=== PATIENT | male | born 1970 | race Hispanic/Latino ===

== ENCOUNTER 2022-07-12 12:55 | Observation (INO) | payer BC ==
--- OUTSIDE RECORDS SUMMARY | 2022-07-12 12:58 | XMS REPORT | Continuity of Care Document ---
:1970 Author Organization [facility] t Address [address] [place] [address] Care Team Providers Name Role Phone Sofia Stubbs MD Primary Care Physician [phone] Jem CM, Mitzi Nuñez Attending Clinician [phone] Nabil CM, Victorino Hayward Attending Clinician Charissa Jauregui MA Attending Clinician Unavailable Kiya CM, Willard Paz Attending Clinician Al CM, Carlitos Urias Attending Clinician Juana CM, Solitario Attending Clinician Juan CM, Gustavo Mix Attending Clinician Emery CM, Ankur Mariano Attending Clinician Sofia Stubbs MD Attending Clinician DEMETRA ROJAS Attending Clinician Unavailable MARIELA CHRISTIANSON Attending Clinician Unavailable BRICE RUVALCABA Attending Clinician Unavailable MD BRICE RUVALCABA Attending Clinician Unavailable LESVIA ONEILL Attending Clinician Unavailable WILLARD HUERTAS Admitting Clinician Unavailable JAME CLARK Admitting Clinician Unavailable BRICE RUVALCABA Admitting Clinician Unavailable MD BRICE RUVALCABA Admitting Clinician Unavailable Payers Payer Name Policy Type Policy Number Effective Date Expiration Date S ource Problems Condition Condition Condition Status Onset Resolution Last Treating Co mments Source Name Details Category Date Date Treatment Clinician Date Trigger Trigger Disease Active Overview: Meth alessandra finger, finger, 05-[address] left ring left ring 00:00: g of this H ospita finger finger 00 note l might be different from the original. Added automatic ally from request for surgery [id number] Atrial Atrial Disease Active Methodi fibrillati fibrillati 6-25 st on with on with 00:00: Hospita rapid rapid 00 l ventricula ventricula r response r response Shortness Shortness Disease Active Met hodi of breath of breath 1-08 st 00:00: Hospita 00 l Chest pain Chest pain Disease Active 2016-08 M ethodi 2-03 st 00:00: Hospita 00 l Acute back Acute back Disease Active 2015-08 M ethodi pain pain 0-03 st 00:00: Hospita 00 l Spondyloli Spondyloli Disease Active 2015-08 M ethodi sthesis at sthesis at 0-03 st L4-L5 L4-L5 00:00: Hospita level level 00 l Disc Disc Disease Active 2015-08 Methodi degenerati degenerati 0-03 st on, lumbar on, lumbar 00:00: Ho spita 00 l Allergies, Adverse Reactions, Alerts Allergy Allergy Status Severity Reaction(s) Onset Inactive Treating Comm ents Source Name Type Date Date Clinician Morphine Propensi Active Shortness Of 2015-08 Chest Methodi ty to Breath 0-[address] adverse 00:00: , SOB Hospita reaction 00 l s to drug Tigecycl Propensi Active 2015-08 Muscle Method i ine ty to 0-03 spasms, st adverse 00:00: tremors Hospita reaction 00 and l s to vomiting drug Family History Family Member Diagnosis Comments Start Date Stop Date Source Natural father Cancer [facility] Diabetes [facility] Natural father Kidney disease Method ist [facility] Stroke [facility] Hy[facility] Social History Social Habit Start Date Stop Date Quantity Comments Source Alcohol intake 2022-06-10 2022-06-10 Current [facility] 00:[facility]:00 00:00:00 non-drinker of Hospital alcohol (finding) Tobacco use and 2022-05-04 2022-05-04 Smokeless tobacco [facility] exposure 00:00:00 00:00:00 non-user Hospital Sex Assigned At [birth year] [facility] 00[facility]00 [facility] Smoking Status Start Date Stop Date Source Never smoked tobacco [facility] Medications Ordered Filled Start Stop Current Ordering Indication Dosage Frequency Signature Comments Components Source Medication Medication Date Date Medication? Clinician (SIG) Name Name lidocaine 2021-08 Yes Q.5D Apply Methodi (XYLOCAINE) 0-[address] 2 % jelly 00:00: 2 (two) Hospi ta 00 times a l day as needed for mild pain. amoxicillin 2021-08- No 1{tbl} Q12H Take 1 M ethodi -pot 0-16 10-[address] clavulanate 00:00: 04:59 mouth Hosp jorge (AUGMENTIN) 00 :00 every 12 l 875-125 mg (twelve) per tablet hours for 7 days. keTOROlac 2021-08- No 10mg Q6H Take 1 Metho di (TORadol) 0-16 10-22 tablet (10 st 10 mg 00:00: 04:59 mg total) Hospit a tablet 00 :00 by mouth l every 6 (six) hours as needed for moderate pain for up to 5 days. polyethylen 2021-08- No 17g QD Take 17 g Methodi e glycol 0-14 11-[address] (MIRALAX) 00:00: 05:59 daily for Ho spita 17 gram 00 :00 30 days. l packet lidocaine 2021-08- No 1{each} Q12H Apply 1 M ethodi HCl-hydroco 0-14 11-[address] rtison ac 00:00: 05:59 topically Ho spita 3-0.5 % 00 :00 every 12 l cream (twelve) hours as needed (rectal pain) for up to 30 days. hydrocortis 2021-08- No 1{appli Q.5D Insert 1 Methodi one-pramoxi 0-14 11-14 cator} applicator st ne 00:00: 05:59 into the Hospita (Proctofoam 00 :00 rectum 2 l HC) 1-1 % (two) rectal foam times a day for 30 days. polyethylen 2021-08- No 17g QD Take 17 g Methodi e glycol 0-14 10-[address] (MIRALAX) 00:00: 00:00 daily for Ho spita 17 gram 00 :00 30 days. l packet hydrocortis 2021-08- No 1{appli Q.5D Insert 1 Methodi one-pramoxi 0-14 10-14 cator} applicator st ne 00:00: 00:00 into the Hospita (Proctofoam 00 :00 rectum 2 l HC) 1-1 % (two) rectal foam times a day for 30 days. lidocaine 2021-08- No 1{each} Q12H Apply 1 M ethodi HCl-hydroco 0-14 10-[address] rtison ac 00:00: 00:00 topically Ho spita 3-0.5 % 00 :00 every 12 l cream (twelve) hours as needed (rectal pain). potassium Yes 10meq Q.5D Take 10 Meth alessandra citrate 9-[address] (UROCIT-K) 09:32: mouth 2 Hosp jorge 10 mEq 45 (two) l (1,080 mg) times a CR tablet day. semaglutide Yes 1mg Q1W Inject 1 Me thodi (OZEMPIC) 9-[address] 0.25 09:32: the skin Hospita mg/dose (2 45 every 7 l mg/1.5 mL) days. subcutaneou Every s pen Saturday pioglitazon Yes 15mg QD Take 15 mg Methodi e (ACTOS) 9-[address] 15 MG 09:32: daily. Hospita tablet 45 l aspirin 0 Yes 81mg QD Take 81 mg Meth alessandra (ECOTRIN) 9-[address] 81 MG 09:32: daily. Hospita enteric 45 l coated tablet famotidine Yes 20mg Q.5D Take 20 mg M ethodi (PEPCID) 20 05-[address] MG tablet 09:32: (two) Hospita 45 times a l day. rosuvastati Yes 5mg QD Take 1 Meth alessandra n (CRESTOR) 05-08 tablet (5 st 5 mg tablet 09:32: mg total) H ospita 45 by mouth l daily. cyanocobala Yes 1000ug QD Take 1 Me thodi min 05-[address] (VITAMIN 09:32: (1,000 mcg Hos gustavo B-12) 1000 45 total) by l MCG tablet mouth daily. cholecalcif Yes Take by Met hodi chema, 05-[address] vitamin D3, 09:32: Hospit a (VITAMIN D3 45 l ORAL) flecainide Yes 100mg Q.5D Take 1 Meth alessandra (TAMBOCOR) 05-[address] 100 MG 09:32: (100 mg Hospita tablet 45 total) by l mouth 2 (two) times a day. methocarbam 2021- No 500mg Q.5D Take 500 Methodi oL 05-[address] (ROBAXIN) 16:46: 00:00 mouth 2 Hosp jorge 500 MG 52 :00 (two) l tablet times a day. pregabalin 2021- No pregabalin Methodi (LYRICA) 50 05-[address] MG capsule 16:19: 00:00 capsule Hos gustavo 10 :00 l HYDROcodone 2021- No 1{tbl} Q6H Take 1 M ethodi -acetaminop 05-[address] hen (NORCO) 16:19: 00:00 mouth Hosp jorge 7.5-325 mg 00 :00 every 6 l per tablet (six) hours as needed for moderate pain. traMADoL 2021- No 29934 50mg Q6H Take 1 Metho di (ULTRAM) 50 05-04 tablet (50 s t mg tablet 00:00: 04:59 mg total) Ho spita 00 :00 by mouth l every 6 (six) hours as needed for moderate pain for up to 5 days .acute pain. ondansetron 2021- No 4mg Q8H Take 1 Met hodi ODT 01-20 tablet (4 st (ZOFRAN-ODT 00:00: 00:00 mg total) Hospita ) 4 MG 00 :00 by mouth l disintegrat every 8 ing tablet (eight) hours as needed for nausea or vomiting for up to 12 doses. tamsulosin 2021- No .4mg QD Take 1 Meth alessandra (FLOMAX) 01-[address] 0.4 mg 00:00: 04:59 (0.4 mg Hospita capsule 00 :00 total) by l mouth daily for 30 days. keTOROlac 2021- No 10mg Q6H Take 1 Metho di (TORadol) 01-20 tablet (10 st 10 mg 00:00: 04:59 mg total) Hospit a tablet 00 :00 by mouth l every 6 (six) hours as needed for moderate pain for up to 5 days. SUMAtriptan No 50mg Take 1 Met hodi (Imitrex) 09-08 tablet (50 st 50 MG 00:00: 00:00 mg total) Hospit a tablet 00 :00 by mouth l once as needed for migraine for up to 8 doses. May repeat in 2 hours if unresolved . Do not exceed 200 mg in 24 hours. allopurinol Yes 300mg QD Take 300 M ethodi (ZYLOPRIM) 4-[address] 300 MG 00:00: mouth Hospita tablet 00 daily. l metFORMIN 2015-08 Yes 500mg Q.5D Take 500 Met hodi (GLUCOPHAGE 0-[address] ) 500 MG 00:00: mouth 2 Hospit a tablet 00 (two) l times a day. Immunizations Ordered Immunization Filled Immunization Date Status Commen ts Source Name Name Scale Computing READY TO USE 2022-03-06 Completed Metho dist COVID-19 MRNA 00:00:00 Hospital VACCINATION PFIZER COVID-19 MRNA 2021-07-14 Completed Meth odist VACCINATION 00:00:00 [facility] PFIZER COVID-19 MRNA 2020-09-21 Completed Meth odist VACCINATION 00:00:00 Hospital PFIZER COVID-19 MRNA 2020-08-31 Completed Meth odist VACCINATION 00:00:00 Hospital Influenza, 2017-04-30 Completed [facility] 00:[facility] Hospital Vital Signs Vital Name Observation Time Observation Value Comments Source Systolic blood 2022-06-10 18:36:17 120 mm[Hg] [facility] pressure Diastolic blood 2022-06-10 18:36:17 58 mm[Hg] [facility] pressure Heart rate 2022-06-10 18:36:17 57 /min [facility] Respiratory rate 2022-06-10 18:36:17 26 /min [facility] Oxygen saturation in 2022-06-10 18:36:17 100 /min [facility] Arterial blood by Pulse oximetry Body temperature 2022-06-10 16:08:13 37 Aby [facility] Body height 2022-06-08 20:06:00 180.3 cm [facility] Body weight 2022-06-08 20:06:00 191.418 kg [facility] BMI 2022-06-08 20:06:00 58.86 kg/m2 [facility] Procedures Procedure Date / Time Performing Clinician Source Performed ECG 12-LEAD 2022-06-10 17:38:38 Mitzi Gunn [facility]spital [place] ECG ED PRELIMINARY 2022-06-10 17:09:04 [facility] [place] ED REFERRAL TO FLUVANNA 2022-06-08 22:50:03 Krissy Montero [facility] PHYSICIAN Virant ORGANIZATION (PCP) CT ABDOMEN PELVIS W 2022-06-08 22:29:22 Krissy Montero [facility] CONTRAST Virant HC COMPLETE BLD COUNT 2022-06-08 21:02:00 Krissy Montero [facility] W/AUTO DIFF [facility] COMPREHENSIVE METABOLIC 2022-06-08 21:02:00 Krissy Montero [facility] PANEL Virant LACTIC ACID LEVEL, SEPSIS 2022-06-08 21:02:00 Krissy Montero se [facility] - NOW AND REPEAT 2X EVERY Virant 3 HOURS ESTIMATED GFR 2022-06-08 21:02:00 Krissy Montero [facility] Virant POC GLUCOSE 2022-05-08 13:23:00 Willard Huertas [facility] MO AN ELECTIVE 2022-05-08 12:40:00 Deandre Goldman [facility] ospital SUPRAGLOTTIC AIRWAY RELEASE, TRIGGER FINGER 2022-05-08 12:28:00 [facility] POC GLUCOSE 2022-05-08 11:39:00 [facility] ECG PRE/POST OP 2022-05-04 21:29:04 [facility] ospital HC COMPLETE BLD COUNT 2022-05-04 21:06:00 [facility] W/AUTO DIFF BASIC METABOLIC PANEL 2022-05-04 21:06:00 [facility] HEMOGLOBIN A1C 2022-05-04 21:06:00 [facility] ospital ESTIMATED GFR 2022-05-04 21:06:00 [facility] ospital MO INJECT TENDON 2022-01-31 14:58:36 [facility] SHEATH/LIGAMENT CT RENAL STONE PROTOCOL 2022-01-20 11:10:10 Krishna Bell [facility] URINE CULTURE 2022-01-20 10:44:00 BellKrishna de la fuente [facility] URINALYSIS SCREEN AND 2022-01-20 10:44:00 [facility] MICROSCOPY, WITH REFLEX TO CULTURE CT HEAD WO CONTRAST 2021-09-08 14:28:35 Ankur Land [facility] COMPREHENSIVE METABOLIC 2021-09-08 14:08:00 Ankur esquivel [facility] PANEL LIPASE LEVEL 2021-09-08 14:08:00 alvin Ankur [facility] PHOSPHORUS LEVEL 2021-09-08 14:08:00 alvin [facility] 2021-09-08 14:08:00 [facility] COMPLETE BLD COUNT 2021-09-08 14:08:00 [facility] Ankur García [facility] W/AUTO DIFF ESTIMATED GFR 2021-09-08 14:08:00 [facility] Plan of Care Planned Activity Planned Date Details Comments Source Future Scheduled 2022-07-11 HEPATITIS B VACCINES [facility] Test 15:27:41 (1 of 3 - 3-dose series) [code = HEPATITIS B VACCINES (1 of 3 - 3-dose series)] Future Scheduled 2022-07-11 Hepatitis C screening [facility] Test 15:27:41 (procedure) [code = 387392304] Future Scheduled 2022-07-11 COLONOSCOPY SCREENING [facility] Test 15:27:41 [code = COLONOSCOPY SCREENING] Future Scheduled 2022-07-11 COVID-19 VACCINE (5 - [facility] Test 15:27:41 Booster for Pfizer series) [code = COVID-19 VACCINE (5 - Booster for Pfizer series)] Encounters Start End Encounter Admission Attending Care Care Encounter Source Date/Time Date/Time Type Type Clinicians Facility Department ID 2022-06-10 2022-06-10 Emergency Gunn, 1.2.840.1 [id number] Methodi 11:58:00 14:17:[address] Joaquin 3.430.2.7 Hospit a .3.697348 l .8 2022-06-10 2022-06-10 Travel 1.2.840.1 1.2.277.605 [id number] Methodi 00:00:00 00:00:[address] 3.430.2.7 0.2.7.3.698 spita .3.648431 084.8 l .8 2022-06-10 2022-06-10 [facility] 064 [id number] [place] 00:00:00 00:00:[address] 2022-06-08 2022-06-08 Emergency Nabil, 1.2.840.1 [id number] Methodi 15:40:00 18:32:[address] 3.430.2.7 Hospit a .3.207709 l .8 2022-06-08 2022-06-08 Emergency [place] [address] [id number] [place] 00:00:00 00:00:00 VICTORINO [address] 2022-05-31 2022-05-31 Orders Juventino, 1.2.840.1 [id number] Methodi 00:00:00 00:00:00 Only Charissa 29632.1.[address] 3.430.2.7 Hospit a .3.066783 l .8 2022-05-15 2022-05-15 Office Huertas, 1.2.840.1 [id number] Methodi 16:10:00 17:19:28 Visit Vincartur 53973.1.[address] [place] 3.430.2.7 Hospit a .3.016610 l .8 2022-05-15 2022-05-15 Outpatient HUERTAS, [facility] [id number] [place] 00:00:00 00:00:00 KERONARTUR [address] 2022-05-15 2022-05-15 Travel 1.2.840.1 1.2.693.297 [id number] Methodi 00:00:00 00:00:[address] 3.430.2.7 0.2.7.3.698 Ho spita .3.276353 084.8 l .8 2022-05-08 2022-05-08 Hospital Huertas, 1.2.840.1 [id number] Methodi 05:51:00 09:32:00 Encounter Vincent [address]3600.1.[address] [place] 3.430.2.7 Hospit a .3.686555 l .8 2022-05-08 2022-05-08 Surgery Huertas, 1.2.840.1 [id number] Methodi 07:30:00 08:40:[address] [place] 3.430.2.7 Hospit a .3.173465 l .8 2022-05-08 2022-05-08 Anesthesia Melendez, 1.2.840.1 [id number] Methodi 07:28:00 08:23:00 Event Yaoyao 66296.1.[address] Bridgett 3.430.2.7 Hospit a .3.383647 l .8 2022-05-08 2022-05-08 Outpatient HUERTAS, [facility] [id number] [place] 00:00:00 00:00:[address]INCENT [address] 2022-05-08 2022-05-08 Travel 1.2.840.1 1.2.567.730 [id number] Methodi 00:00:00 00:00:[address] 3.430.2.7 0.2.7.3.698 Ho spita .3.433052 084.8 l .8 2022-05-04 2022-05-04 Pre-Admiss Huertas, 1.2.840.1 [id number] Methodi 16:00:00 17:00:00 ion Vincent 90749.1.[address] Testing [place] 3.430.2.7 Hospit a .3.432380 l .8 2022-05-04 2022-05-04 Office Huertas, 1.2.840.1 [id number] Methodi 15:00:00 15:42:58 Visit Vincartur 89446.1.[address] [place] 3.430.2.7 Hospit a .3.992163 l .8 2022-05-04 2022-05-04 Outpatient HUERTAS, [facility] [id number] [place] 00:00:00 00:00:00 VINCENT [address] 2022-05-04 2022-05-04 Outpatient HUERTAS, [facility] [id number] [place] 00:00:00 00:00:00 VINCENT [address] 2022-05-04 2022-05-04 Transcribe Huertas, 1.2.840.1 [id number] Methodi 00:00:00 00:00:00 Orders Vincartur 72712.1.[address] [place] 3.430.2.7 Hospit a .3.426332 l .8 2022-05-04 2022-05-04 Travel 1.2.840.1 1.2.380.249 4619 [id number] Methodi 00:00:00 00:00:[address] 3.430.2.7 0.2.7.3.698 Ho spita .3.137641 084.8 l .8 2022-04-25 2022-04-25 Travel 1.2.840.1 1.2.666.009 2624 [id number] Methodi 00:00:00 00:00:[address] 3.430.2.7 0.2.7.3.698 Ho spita .3.050182 084.8 l .8 2022-01-31 2022-02-12 Office Huertas, 1.2.840.1 [id number] Methodi 09:20:00 19:29:27 Visit Vincartur 62560.1.[address] [place] 3.430.2.7 Hospit a .3.551333 l .8 2022-02-05 2022-02-05 Transcribe Juana, 1.2.840.1 [id number] Methodi 00:00:00 00:00:00 Orders Irfan 94087.1.[address] 3.430.2.7 Hospit a .3.327356 l .8 2022-01-31 2022-01-31 Outpatient HUERTAS, [facility] [id number] [place] 00:00:00 00:00:[address]INC[address] 2022-01-31 2022-01-31 Travel 1.2.840.1 1.2.770.515 [id number] Methodi 00:00:00 00:00:[address] 3.430.2.7 0.2.7.3.698 Ho spita .3.990648 084.8 l .8 2022-01-23 2022-01-23 Travel 1.2.840.1 1.2.843.519 0795 [id number] Methodi 00:00:00 00:00:[address] 3.430.2.7 0.2.7.3.698 Ho spita .3.295888 084.8 l .8 2022-01-20 2022-01-20 Emergency Juan, 1.2.840.1 [id number] Methodi 05:25:00 07:20:00 Gustavo Mix [address]199.1.[address] 3.430.2.7 Hospit a .3.751821 l .8 2022-01-20 2022-01-20 Emergency JUAN, [place] [address] [id number] [place] 00:00:00 00:00:00 GUSTAVO [address] 2022-01-20 2022-01-20 Travel 1.2.840.1 1.2.195.505 [id number] Methodi 00:00:00 00:00:[address] 3.430.2.7 0.2.7.3.698 Ho spita .3.642979 084.8 l .8 2021-09-08 2021-09-08 Emergency Egbers, 1.2.840.1 [id number] Methodi 07:45:00 09:33:[address] García 3.430.2.7 Hospit a .3.617296 l .8 2021-09-08 2021-09-08 Emergency EGBERS, [place] [address] [id number] [place] 00:00:00 00:00:00 ANKUR [address] 2021-09-05 2021-09-05 Transcribe Neret, 1.2.840.1 [id number] Methodi 00:00:00 00:00:00 Orders Sofia 73054.1.[address] Ray 3.430.2.7 Hospit a .3.839912 l .8 2021-05-19 2021-05-19 Outpatient HUERTAS, [facility] [id number] [place] 00:00:00 00:00:00 WILLARD [address] 2021-03-26 2021-03-27 Emergency BOB, [facility] [id number] [place] 00:00:00 00:00:00 DEMETRA Camejo [facility] 2021-02-16 2021-02-18 Outpatient SAMMY [facility] 064 [id number] [place] 00:00:00 00:00:00 , MARIELA [address] 2020-10-19 2020-10-19 Outpatient KIYA, [facility] [id number] [place] 00:00:00 00:00:00 WILLARD [address] 2020-10-03 2020-10-05 Outpatient BRICE RUVALCABA [facility] [id number] [place] 00:00:00 00:00:[address] 2020-04-30 2020-04-30 Emergency E LESVIA ONEILL [facility] 7503 [facility] 09:46:00 14:07:00 2019-09-21 2019-09-21 Outpatient E [facility] MED 7502 [facility] 23:02:00 23:02:00 2019-09-14 2019-09-14 Emergency E [facility] 7501 [facility]FB 07:39:00 07:39:00 2019-07-28 2019-07-28 Emergency E [facility]FB [facility] 7500 [facility]FB 16:21:00 16:21:00 Results Test Description Test Time Test Comments Results Result Comments Source ECG 12 lead 2022-06-11 14:55:48 Test Item Value Reference Range Interpretation Comme nts Ventricular rate (test code = 253) Atrial rate (test code = 255) MO interval (test code = 266) QRSD interval (test code = 260) QT interval (test code = 264) QTC interval (test code = 265) P axis 1 (test code = 267) QRS axis 1 (test code = 268) T wave axis (test code = 270) EKG impression (test code = 273) Normal sinus rhythm-Minimal voltag e criteria for LVH, may be normal variant ( R in aVL )-Nonspecific ST and T wave abnormality-Abnormal ECG-In automated comparison with ECG of 04-MAY-2022 16:29,-Incomplete right bundle branch block is no longer present- [facility] [id number] 13:24:00 Test Item Value Reference Range Interpretation Comments POC glucose (test code = 103 mg/dL 65-99 H Ope rator Name: [id number]) Feroz Quinones evice ID: [id number] able: RN Notified Lab Interpretation (test Abnormal code = 87031-0) [facility] Pre/Post [id number] 14:57:51 Test Item Value Reference Range Interpretation Comments Ventricular rate (test code = 253) Atrial rate (test code = 255) MO interval (test code = 266) QRSD interval (test code = 260) QT interval (test code = 264) QTC interval (test code = 265) P axis 1 (test code = 267) QRS axis 1 (test code = 268) T wave axis (test code = 270) EKG impression (test Normal sinus code = 273) rhythm-Incomplete right bundle branch block-Moderate voltage criteria for LVH, may be normal variant-Nonspecific ST and T wave abnormality-Abnormal ECG-In automated comparison with ECG of 26-MAR-2021 23:56,-Incomplete right bundle branch block is now present- [facility] [id number] 11:14:00 Test Item Value Reference Range Interpretation Comments Urine culture (test SEE COMMENT Bacteriu daron screen code = [id number]) negative. [facility] [Presence] in Respiratory specimen by JIHAN with probe [id number] 01:07:17 Test Item Value Reference Range Interpretation Comments SARS-CoV-2 (COVID-19) RNA Not detected Not-Detected [Presence] in Respiratory specimen by JIHAN with probe detection (test code = 00499-4) [facility]
[2022-07-12] MEDS ORDERED: NA CHLORIDE 0.9% 1,000 ML ONE ×2 (14:17→20:15)
[2022-07-12] MEDS ORDERED: ONDANSETRON 4 MG/2 ML VIAL ONE (14:47)
[2022-07-12] MEDS ORDERED: FENTANYL CITR 100 MCG/2 ML ONE ×2 (14:47→23:15)
[2022-07-12 14:49] LABS: Absolute Lymphocytes (CBC) 1.6 K/uL (0.7-4.9); Hematocrit 42.6 % (39.6-49.0); Lymphocytes % 20.6 % (15.3-44.8); MCV 81.8 fL (80-100); MPV 8.7 fL (7.6-11.3)
[2022-07-12 15:04] LABS: Albumin 3.6 g/dL (3.4-5.0); Bilirubin Total 0.5 mg/dL (0.2-1.0); Potassium 3.8 mmol/L (3.5-5.1); Protein, Total 7.2 g/dL (6.4-8.2)
--- NOTE | 2022-07-12 15:17 | RAD REPORT ---
EXAM DESCRIPTION: US - Extremity Nonvascular Limited - 07/12/2022 2:57 pm CLINICAL HISTORY: R/O Perirectal abscess COMPARISON: No comparisons FINDINGS: Focused ultrasound of the perineum to evaluate for abscess. Fluid collection in the perineum measuring approximately 5 mm x 4 mm. Skin thickening is also present . IMPRESSION: Subcutaneous collection likely reflecting a subcentimeter abscess in the perineum. Peria nal/perirectal fistula cannot be excluded on the basis of this study.
[2022-07-12] MEDS ORDERED: NA CHLORIDE 0.9% 100 ML IV ONE ×2 (15:49→22:39)
[2022-07-12] MEDS ORDERED: PIPERACIL/TAZO 3.375 GM VIAL IV ONE ×2 (15:49→22:39)
[2022-07-12] MEDS ORDERED: NA CHLORIDE 0.9% 500 ML ONE (16:19)
--- NOTE | 2022-07-12 16:45 | EDPHYS ---
Physician Documentation [facility] Name: Scot Vuong Age: 51 yrs Sex: Male : 1970 Arrival Date: 07/12/2022 Time: 12:58 Bed 23 Private MD: ED Physician Alpesh Rivas HPI: 07/12 13:20 This 51 yrs old Male presents to ER via Ambulatory with complaints of Doctor 7 Referral. 13:20 Onset: The symptoms/episode began/occurred 1 week(s) ago. Associated signs and 7 symptoms: Pertinent positives: Purulent drainage and bleeding from rectum, Pertinent negatives: fever. Patient reports that he was sent from Dr. Anaya's office for a CT scan. Reports that he was sent to get a perirectal abscess ruled out. States that he has had rectal bleeding and pus seeping from his rectum for 1 month.. Historical: - Allergies: 13:20 Morphine; kr3 13:20 tygasil; kr3 - PMHx: 13:19 Diabetes mellitus; sleep apnea; Atrial fibrillation; kr3 - PSHx: 13:20 trigger finger; Cholecystectomy; kr3 - Immunization history:: Adult Immunizations up to date. - Social history:: Smoking status: Patient denies any tobacco usage or history of. ROS: 13:20 Constitutional: Negative for fever, chills, and weight loss, Eyes: Negative for injury, jh7 pain, redness, and discharge, Neck: Negative for injury, pain, and swelling, Cardiovascular: Negative for chest pain, palpitations, and edema, Respiratory: Negative for shortness of breath, cough, wheezing, and pleuritic chest pain, Back: Negative for injury and pain, MS/Extremity: Negative for injury and deformity, Skin: Negative for injury, rash, and discoloration, Neuro: Negative for headache, weakness, numbness, tingling, and seizure. 13:20 Abdomen/GI: Positive for rectal pain, rectal bleeding, Negative for nausea, vomiting, and diarrhea. 13:20 All other systems are negative. Exam: 13:20 Constitutional: This is a well developed, well nourished patient who is awake, alert, jh7 and in no acute distress. Head/Face: Normocephalic, atraumatic. Cardiovascular: Regular rate and rhythm with a normal S1 and S2. No gallops, murmurs, or rubs. Normal PMI, no JVD. No pulse deficits. Respiratory: Lungs have equal breath sounds bilaterally, clear to auscultation and percussion. No rales, rhonchi or wheezes noted. No increased work of breathing, no retractions or nasal flaring. Back: No spinal tenderness. No costovertebral tenderness. Full range of motion. Skin: Warm, dry with normal turgor. Normal color with no rashes, no lesions, and no evidence of cellulitis. MS/ Extremity: Pulses equal, no cyanosis. Neurovascular intact. Full, normal range of motion. Neuro: Awake and alert, GCS 15, oriented to person, place, time, and situation. Motor strength 5/5 in all extremities. Sensory grossly intact. Cerebellar exam normal. Normal gait. 13:20 Abdomen/GI: Inspection: small tear present in the perianal region superior to the anus with purulent fluid actively drainage, Bowel sounds: normal, Palpation: abdomen is soft and non-tender, Rectal exam: tenderness, that is moderate, Purulent drainage and blood seeping from anus. The area is tender to palpation.. Vital Signs: 13:17 BP 140 / 77; Pulse 55; Resp 18; Temp 98.1; Weight 186.88 kg; Height 5 ft. 11 in. kr3 (180.34 cm); Pain 10/10; 14:41 BP 121 / 65; Pulse 52; Resp 18 S; Pulse Ox 100% on R/A; Pain 10/10; kc6 15:58 BP 109 / 67; Pulse 55; Resp 17 S; Pulse Ox 100% on R/A; Pain 3/10; kc6 16:58 BP 108 / 56; Pulse 54; Resp 18; Pulse Ox 100% on R/A; kc6 13:17 Body Mass Index 57.46 (186.88 kg, 180.34 cm) kr3 MDM: 13:36 Patient medically screened. [facility] 14:15 ED course: Spoke to Dr. Anaya regarding CTs inability to complete the scan due to the [facility] patient being over the weight limit (412lb). MRI stated this is well. Dr. Anaya requested US to r/o perirectal abscess. . 15:30 ED course: Consulted with both Dr. Rivas and Dr. Anaya regarding ultrasound [facility] results. Dr. Pollack advised to start Zosyn and stated that he would speak to the radiologist about weight limit on CT scan.. 16:50 Differential diagnosis: Perirectal abscess. Data reviewed: vital signs, nurses notes, [facility] lab test result(s), radiologic studies, ultrasound. Data interpreted: Pulse oximetry: is 100 %. Interpretation: normal. Counseling: I had a detailed discussion with the patient and/or guardian regarding: the historical points, exam findings, and any diagnostic results supporting the discharge/admit diagnosis, the need for further work-up and treatment in the hospital. ED course: The patient was admitted to Dr. Willoughby with Dr. Anaya as the consulting physician. Dr. Willoughby agreed to admission and spoke with Héctor regarding the plan of care. Héctor ordered to continue Zosyn and have the patient NPO after midnight.. 07/12 13:43 Order name: CBC with Diff; Complete Time: 15:12 [facility] 07/12 13:43 Order name: CMP; Complete Time: 15:12 [facility] 07/12 17:47 Order name: SARS RAPID eb 07/12 18:34 Order name: SARS-COV-2 Antigen Rapid [facility] 07/12 21:05 Order name: Protime (+INR) [facility] 07/12 21:06 Order name: Glucose, Ancillary Testing [facility] 07/13 05:20 Order name: CBC with Automated Diff [facility] 07/13 05:31 Order name: Basic Metabolic Panel [facility] 07/13 05:31 Order name: Phosphorus [facility] 07/13 05:31 Order name: Magnesium [facility] 07/13 08:16 Order name: Glucose, Ancillary Testing [facility] 07/13 11:11 Order name: Potassium [facility] 07/13 12:11 Order name: Glucose, Ancillary Testing [facility] 07/12 13:43 Order name: IV Saline Lock; Complete Time: 14:11 [facility] 07/12 13:43 Order name: Labs collected and sent; Complete Time: 14:11 [facility] 07/12 14:23 Order name: US Extrmty Nonvasular Limited; Complete Time: 15:19 [facility] 07/12 16:47 Order name: NPO: NPO after midnight; Complete Time: 16:48 [facility] 07/12 19:44 Order name: CPAP la1 Administered Medications: 14:32 Drug: NS 0.9% 1000 ml Route: IV; Rate: 1 bolus; Site: right antecubital; kc6 15:32 Follow up: Response: No adverse reaction; IV Status: Completed infusion; IV Intake: kc6 1000ml 15:13 Drug: fentaNYL (PF) 50 mcg Route: IVP; Site: right antecubital; kc6 16:13 Follow up: Response: No adverse reaction; Pain is decreased kc6 15:13 Drug: Zofran (Ondansetron) 4 mg Route: IVP; Site: right antecubital; kc6 16:13 Follow up: Response: No adverse reaction; Nausea is decreased 6 15:57 Drug: Zosyn (piperacillin-tazobactam) 3.375 grams Route: IVPB; Infused Over: 60 mins; kc6 Site: right antecubital; 16:57 Follow up: Response: No adverse reaction; IV Status: Completed infusion; IV Intake: kc6 100ml Disposition Summary: 07/12/22 16:44 Hospitalization Ordered Hospitalization Status: Inpatient Admission [facility] Provider: Jaydon Willoughby [facility] Condition: Stable [facility] Problem: new [facility] Symptoms: are unchanged [facility] Bed/Room Type: Standard [facility] Location: Telemetry/MedSurg (observation)(07/13/22 12:32) Room Assignment: [employer](07/13/22 12:32) Diagnosis - Rectal abscess [facility] Forms: - Medication Reconciliation Form [facility] - SBAR form [facility] Addendum: 07/15/2022 13:32 Co-signature as Attending Physician, Alpseh Rivas MD I agree with the assessment and c page plan of care. Signatures: Dispatcher [employer] [facility] Wendy Vogel RN Alpesh Potts MD MD cha Garcia, Cindy, RN RN Mitzi Tovar, RADIO TOWER TECHNICIAN RADIO TOWER TECHNICIAN [facility] Willa Mckeon RN RN luis3 Catrachita Schwartz RN RN kc6 Corrections: (The following items were deleted from the chart) 07/12 14:49 13:43 Abdomen Pelvis W Con+CT.RAD.BRZ ordered. [facility] 15:52 13:20 Abdomen/GI: Inspection: abdomen appears normal, Bowel sounds: normal, Palpation: [facility] abdomen is soft and non-tender, Rectal exam: tenderness, that is moderate, Purulent drainage and blood seeping from anus. The area is tender to palpation.. [facility] 16:44 Telemetry/MedSurg (Inpatient) [facility] 16:44 [facility] 07/13 12:32 07/12 21:43 [facility] 07/13 12:32 07/12 21:43 [facility]- [facility]
--- NOTE | 2022-07-12 16:45 | ER ---
Nurse's Notes [facility] Name: Scot Vuong Age: 51 yrs Sex: Male : 1970 Arrival Date: 07/12/2022 Time: 12:58 Bed 23 [facility] MD: Diagnosis: Rectal abscess Presentation: 07/12 13:15 Chief complaint: Patient states: sent here from [facility], told he has a abscess in kr3 rectum. Coronavirus screen: Vaccine status: Patient reports receiving the 2nd dose of the covid vaccine. Client denies travel out of the [place] in the last 14 days. Ebola Screen: Patient denies travel to an Ebola-affected area in the 21 days before illness onset. 13:15 Method Of Arrival: Ambulatory kr3 13:17 Initial Sepsis Screen: Does the patient meet any 2 criteria? No. Patient's initial kr3 sepsis screen is negative. Does the patient have a suspected source of infection? No. Patient's initial sepsis screen is negative. Risk Assessment: Do you want to hurt yourself or someone else? Patient reports no desire to harm self or others. Onset of symptoms. 13:17 Acuity: MARINA 3 kr3 Triage Assessment: 13:21 General: Appears in no apparent distress. uncomfortable, Behavior is calm, cooperative, kr3 appropriate for age. Pain: Complains of pain in buttocks. Historical: - Allergies: 13:20 Morphine; kr3 13:20 tygasil; kr3 - PMHx: 13:19 Diabetes mellitus; sleep apnea; Atrial fibrillation; kr3 - PSHx: 13:20 trigger finger; Cholecystectomy; kr3 - Immunization history:: Adult Immunizations up to date. - Social history:: Smoking status: Patient denies any tobacco usage or history of. Screenin:42 Abuse screen: Denies threats or abuse. Denies injuries from another. Nutritional kc6 screening: No deficits noted. Tuberculosis screening: No symptoms or risk factors identified. Fall Risk No fall in past 12 months (0 pts). No secondary diagnosis (0 pts). IV access (20 points). Ambulatory Aid- None/Bed Rest/Nurse Assist (0 pts). Gait- Normal/Bed Rest/Wheelchair (0 pts) Mental Status- Oriented to own ability (0 pts). Total Mason Fall Scale indicates No Risk (0-24 pts). Assessment: 14:33 General: Appears in no apparent distress. uncomfortable, Behavior is calm, cooperative, kc6 appropriate for age. Pain: Complains of pain in rectum Pain does not radiate. Pain currently is 10 out of 10 on a pain scale. Quality of pain is described as sharp, Pain began gradually, Is continuous, Alleviated by nothing. Aggravated by having a bowel movement Noted to be grimacing, Also complains of no other associated symptoms. Neuro: Garcia Agitation-Sedation Scale (RASS): 0 - Alert and Calm Level of Consciousness is awake, alert, obeys commands, Oriented to person, place, time, situation, Appropriate for age. Cardiovascular: Heart tones S1 S2 present Capillary refill < 3 seconds. Respiratory: Airway is patent Trachea midline Respiratory effort is even, unlabored, Respiratory pattern is regular, symmetrical, Breath sounds are clear bilaterally. GI: Reports having an abscess to the rectum that has some serosanguinous drainage. : No signs and/or symptoms were reported regarding the genitourinary system. EENT: No signs and/or symptoms were reported regarding the EENT system. Derm: No signs and/or symptoms reported regarding the dermatologic system. Skin is intact, Skin is pink, warm \T\ dry. Musculoskeletal: No signs and/or symptoms reported regarding the musculoskeletal system. Circulation, motion, and sensation intact. Capillary refill < 3 seconds, Range of motion: intact in all extremities. 15:58 Reassessment: Patient appears in no apparent distress at this time. No changes from kc6 previously documented assessment. Patient and/or family updated on plan of care and expected duration. Pain level reassessed. Patient is alert, oriented x 3, equal unlabored respirations, skin warm/dry/pink. client stated his pain is decreased to a 3/10. 16:58 Reassessment: Patient appears in no apparent distress at this time. No changes from kc6 previously documented assessment. Patient and/or family updated on plan of care and expected duration. Pain level reassessed. Patient is alert, oriented x 3, equal unlabored respirations, skin warm/dry/pink. Vital Signs: 13:17 BP 140 / 77; Pulse 55; Resp 18; Temp 98.1; Weight 186.88 kg; Height 5 ft. 11 in. kr3 (180.34 cm); Pain 10/10; 14:41 BP 121 / 65; Pulse 52; Resp 18 S; Pulse Ox 100% on R/A; Pain 10/10; kc6 15:58 BP 109 / 67; Pulse 55; Resp 17 S; Pulse Ox 100% on R/A; Pain 3/10; kc6 16:58 BP 108 / 56; Pulse 54; Resp 18; Pulse Ox 100% on R/A; kc6 13:17 Body Mass Index 57.46 (186.88 kg, 180.34 cm) kr3 ED Course: 12:58 Patient arrived in ED. mr 13:19 Triage completed. kr3 13:21 Arm band placed on right wrist. kr3 13:36 Mitzi Grant FNP is PHCP. jh7 13:36 Alpesh Rivas MD is Attending Physician. jh7 14:08 Patient placed in an exam room, on a stretcher. ll1 14:24 Catrachita Schwartz RN is Primary Nurse. kc6 14:24 CBC with Diff Sent. kc6 14:24 CMP Sent. kc6 14:59 US Extrmty Nonvasular Limited In Process Unspecified. EDMS 16:43 Jaydon Willoughby is Hospitalizing Provider. jh7 18:09 SARS RAPID Sent. kc6 19:09 Primary Nurse role handed off by Catrachita Schwartz RN mw2 22:54 Jennifer Figueroa, SARAVANAN is Primary Nurse. 3 07/13 08:37 Primary Nurse role handed off by Jennifer Figueroa RN eb Administered Medications: 07/12 14:32 Drug: NS 0.9% 1000 ml Route: IV; Rate: 1 bolus; Site: right antecubital; kc6 15:32 Follow up: Response: No adverse reaction; IV Status: Completed infusion; IV Intake: kc6 1000ml 15:13 Drug: fentaNYL (PF) 50 mcg Route: IVP; Site: right antecubital; kc6 16:13 Follow up: Response: No adverse reaction; Pain is decreased kc6 15:13 Drug: Zofran (Ondansetron) 4 mg Route: IVP; Site: right antecubital; kc6 16:13 Follow up: Response: No adverse reaction; Nausea is decreased kc6 15:57 Drug: Zosyn (piperacillin-tazobactam) 3.375 grams Route: IVPB; Infused Over: 60 mins; kc6 Site: right antecubital; 16:57 Follow up: Response: No adverse reaction; IV Status: Completed infusion; IV Intake: kc6 100ml Medication: 23:23 VIS not applicable for this client. ll3 Intake: 15:32 IV: 1000ml; Total: 1000ml. kc6 16:57 IV: 100ml; Total: 1100ml. kc6 Outcome: 16:44 Decision to Hospitalize by Provider. jorge luis 07/13 14:05 Patient left the ED. ss Signatures: Dispatcher [employer] [facility] Bessy WeaverCami, RN RN ss Peter Reno 2 Avis Abraham Lynsay RN RN ll1 Jeninfer Figueroa, RN RN ll3 Mitzi Grant, FUND ACCOUNTING MANAGER FUND ACCOUNTING MANAGER 7 Willa Mckeon RN RN luis3 Catrachita Schwartz RN RN kc6 Corrections: (The following items were deleted from the chart) 07/12 16:01 15:58 Reassessment: Patient appears in no apparent distress at this time. No changes kc6 from previously documented assessment. Patient and/or family updated on plan of care and expected duration. Pain level reassessed. Patient is alert, oriented x 3, equal unlabored respirations, skin warm/dry/pink. client stated his pain is decreased to a 3/10. kc6
--- NOTE | 2022-07-12 17:52 | P.HP ---
Certification for Inpatient With expected LOS: <2 Midnights Practitioner: I am a practitioner with admitting privileges, knowledge of patient current condition, hospital course, and medical plan of care. Services: Services provided to patient in accordance with Admission requirements found in Title 42 Section 412.3 of the Code of Federal Regulations Patient History Date of Service: 07/12/22 Reason for admission: Drainage from anal area History of Present Illness: 51-year-old morbidly obese gentleman with a history of diabetes mellitus type II presented emergency department with a complaint of purulent drainage and bleeding from the anal. Patient was referred to Dr. Crawford by his PCP, he saw Dr. Crawford in his office today who examined him and noted an opening in the perirectal area draining bloodstained pus. Dr. Crawford referred the patient to the emergency department for imaging. Patient weight could not fit the CT scan. Ultrasound was done which shows small perirectal abscess. Dr. Crawford recommended hospitalization for examination under anesthesia tomorrow. Patient is admitted for further management. - Past Medical/Surgical History -: Diabetes mellitus type 2 -: Morbid obesity - Family History Father -: Diabetes - Social History Smoking Status: Never smoker Alcohol use: No CD- Drugs: No Place of Residence: Home Review of Systems Other: Patient denied any fever or chills. No nausea or vomiting. Except as documented, all other systems reviewed and negative. Physical Examination - Physical Exam General: Alert, In no apparent distress, Oriented x3, Other (Morbidly obese) HEENT: Atraumatic, PERRLA, Mucous membr. moist/pink Neck: Supple, JVD not distended Respiratory: Clear to auscultation bilaterally, Normal air movement Cardiovascular: No edema, Regular rate/rhythm, Normal S1 S2 Gastrointestinal: Normal bowel sounds, Soft and benign, Non-distended, No tenderness, Other (Small opening in the perirectal area draining blood stained pus. No tender swelling.) Musculoskeletal: No swelling, No tenderness Integumentary: No rashes, No erythema, No cyanosis Neurological: Normal speech, Normal strength at 5/5 x4 extr, Cranial nerves 3-12 intact Lymphatics: No axilla or inguinal lymphadenopathy - Studies Laboratory Data (last 24 hrs) 07/12/22 14:21: Sodium 139, Potassium 3.8, BUN 9, Creatinine 0.83, Glucose 100, Total Bilirubin 0.5, AST 17, ALT 31, Alkaline Phosphatase 65 07/12/22 14:21: WBC 7.50, Hgb 14.5, Hct 42.6, Plt Count 217 Assessment and Plan - Problems (Diagnosis) (1) Perirectal abscess Current Visit: Yes Status: Acute (2) Diabetes mellitus type 2 in obese Current Visit: Yes Status: Acute (3) Morbid obesity Current Visit: Yes Status: Acute - Plan Place patient on observation on the medical floor. Start IV Zosyn Pain management with IV fentanyl as needed Insulin sliding scale for glucose General surgery-Dr. Crawford consulted. Dr. Crawford is planning examination under general anesthesia. - Advance Directives Does patient have a Living Will: No Does patient have a Durable POA for Healthcare: No
[2022-07-12 18:34] LABS: SARS-CoV-2 Antigen Rapid Res Negative (Negative)
[2022-07-12] MEDS ORDERED: ACETAMINOPHEN 500 MG TAB PO PRN (19:15)
[2022-07-12] MEDS ORDERED: ONDANSETRON 4 MG/2 ML VIAL IV PRN (19:15)
[2022-07-12] MEDS ORDERED: PIPER TAZO 3.375 GM in NA CHLORIDE 0.9% 100 ML IV SCH (20:00)
[2022-07-12] MEDS: NA CHLORIDE 0.9% 1,000 ML IV SCH (20:20)
[2022-07-12] MEDS: INSULIN -REGULAR HUMAN 50 UNIT/0.5 ML ML SQ SCH (21:00)
[2022-07-12 21:05] LABS: Protime INR 1.15
[2022-07-12] MEDS: PIPER TAZO 3.375 GM in NA CHLORIDE 0.9% 100 ML IV SCH (23:00)
[2022-07-12] MEDS: FENTANYL CITR 100 MCG/2 ML IV PRN (23:20)
[2022-07-12 23:45] VITALS: BMI 57.4
[2022-07-13] MEDS ORDERED: FENTANYL CITR 100 MCG/2 ML ONE ×3 (04:42→14:50)
[2022-07-13] MEDS: FENTANYL CITR 100 MCG/2 ML IV PRN ×3 (04:45→21:18)
[2022-07-13 05:12] LABS: Absolute Lymphocytes (CBC) 1.6 K/uL (0.7-4.9); Hematocrit 39.7 % (39.6-49.0); Lymphocytes % 25.6 % (15.3-44.8); MCV 82.1 fL (80-100); RBC Red Blood Cell Count 4.84 M/uL (4.33-5.43)
[2022-07-13] MEDS: NA CHLORIDE 0.9% 1,000 ML IV SCH ×2 (05:15→21:19)
[2022-07-13 05:31] LABS: Magnesium 2.2 mg/dL (1.8-2.4); Phosphorus 3.4 mg/dL (2.5-4.9); Potassium 3.6 mmol/L (3.5-5.1)
[2022-07-13] MEDS ORDERED: NA CHLORIDE 0.9% 1,000 ML ONE ×2 (06:15→14:47)
[2022-07-13] MEDS ORDERED: POTASSIUM 25 MEQ EFFERV TAB PO ONE (06:30)
[2022-07-13] MEDS: PIPER TAZO 3.375 GM in NA CHLORIDE 0.9% 100 ML IV SCH ×3 (07:00→23:23)
[2022-07-13] MEDS: INSULIN -REGULAR HUMAN 50 UNIT/0.5 ML ML SQ SCH ×4 (07:30→20:58)
[2022-07-13] MEDS: HOME MED 1 EA UNK (Rosuvastatin Calcium [Rosuvastatin Calcium] 5 MG Tablet) PO SCH (09:00)
[2022-07-13] MEDS: allopurinoL 300 MG TAB PO SCH (09:00)
[2022-07-13] MEDS: PIOGLITAZONE 15 MG TAB PO SCH (09:00)
[2022-07-13] MEDS: FLECAINIDE 100 MG TAB PO SCH ×2 (09:00→20:58)
[2022-07-13] MEDS: FAMOTIDINE 20 MG TAB PO SCH ×2 (09:00→20:57)
[2022-07-13] MEDS ORDERED: PIPERACIL/TAZO 3.375 GM VIAL IV ONE (12:11)
[2022-07-13] MEDS ORDERED: NA CHLORIDE 0.9% 100 ML IV ONE (12:11)
--- NOTE | 2022-07-13 13:43 | P.PN ---
Subjective Date of Service: 07/13/22 Chief Complaint: Drainage from anal area Patient reports intermittent pain in the rectal area. No issues overnight. He has been afebrile. Physical Examination - Vital Signs Temperature: 97.2 F Blood Pressure: 135/69 Pulse: 59 Respirations: 20 Pulse Ox (%): 100 - Studies Laboratory Data (last 24 hrs) 07/12/22 14:21: Sodium 139, Potassium 3.8, BUN 9, Creatinine 0.83, Glucose 100, Total Bilirubin 0.5, AST 17, ALT 31, Alkaline Phosphatase 65 07/12/22 14:21: WBC 7.50, Hgb 14.5, Hct 42.6, Plt Count 217 Assessment And Plan - Current Problems (Diagnosis) (1) Perirectal abscess Current Visit: Yes Status: Acute (2) Diabetes mellitus type 2 in obese Current Visit: Yes Status: Acute (3) Morbid obesity Current Visit: Yes Status: Acute - Plan Physical Exam General: Alert, In no apparent distress, Oriented x3. Neck: Supple, JVD not distended Respiratory: Clear to auscultation bilaterally, Normal air movement Cardiovascular: No edema, Regular rate/rhythm, Normal S1 S2 Gastrointestinal: Normal bowel sounds, Soft and benign, Non-distended, No tenderness, Small opening in the perirectal area draining blood stained pus. Musculoskeletal: No swelling, No tenderness Integumentary: No rashes, No erythema, No cyanosis Neurological: Normal speech, Normal strength at 5/5 x4 extr, Cranial nerves 3-12 intact Plan: Continue IV Zosyn Continue IV fentanyl as needed for pain. Seen by Dr. Crawford who is recommending CT pelvis before examination under anesthesia. CT pelvis ordered. Blood glucose within normal range. Insulin sliding scale for glucose
[2022-07-13] MEDS ORDERED: BUPIVACAINE 0.25% PF 30 ML VIAL ONE (14:21)
--- NOTE | 2022-07-13 14:45 | RAD REPORT ---
EXAM DESCRIPTION: CT - Pelvis W/Cont - 07/13/2022 2:37 pm CLINICAL HISTORY: Rectal abscess COMPARISON: No comparisons FINDINGS: CT scan of the pelvis was obtained with contrast. No perianal or perirectal abscess is regina ntified. No osseus abnormalities identified. No retroperitoneal lymphadenopathy. No soft tissue gas. IMPRESSION: No evidence of a perirectal or perianal abscess.
[2022-07-13] MEDS ORDERED: MIDAZOLAM HCL 2 MG/2 ML INJ ONE (14:46)
[2022-07-13] MEDS ORDERED: propofoL 200 MG/20 ML VIAL IV ONE ×2 (14:46→15:15)
[2022-07-13] MEDS ORDERED: ONDANSETRON 4 MG/2 ML VIAL ONE ×2 (14:47→15:26)
[2022-07-13] MEDS ORDERED: LIDOCAINE 2% MPF 5 ML VIAL ONE (14:47)
[2022-07-13] MEDS ORDERED: dexAMETHasone 4 MG/ML VIAL ONE (15:26)
[2022-07-13] MEDS ORDERED: METHYLENE BLUE 0.5% 10 ML AMP ONE (15:43)
--- NOTE | 2022-07-13 16:04 | P.OP ---
Preoperative diagnosis: Perianal Pain Postoperative diagnosis: Perianal Pain Primary procedure: Exam Under Anesthesia, placement of Seton Anesthesia: GETA + Local Estimated blood loss: < 10cc Specimen: none Findings: perianal fistula @ 6 oclock position in lithotomy Complications: None Implants: Seton - red vessel loop Transferred to: Recovery Room Condition: Good
[2022-07-13] MEDS: FENTANYL CITR 100 MCG/2 ML ONE ×2 (16:12→16:18)
[2022-07-13] MEDS: HYDROMORPHONE HCL 1 MG/ML INJ ONE ×6 (16:26→17:10)
[2022-07-13 17:07] VITALS: O2SAT 100
[2022-07-13] MEDS: HYDROCODONE/APAP 7.5/325 MG TAB PO PRN ×2 (17:44→23:22)
--- NOTE | 2022-07-13 21:04 | CON ---
Date of Consultation: 07/12/2022 Brief History Of Present Illness: The patient is a 51-year-old male, who I saw earlier in the day in my clinic, who came with complaints of 8 weeks of approximately perianal pain, which now has progres sed to drainage and pus type discharge. His pain got significantly worse. He has severe sharp pain, which is significantly worse after bowel movements and associated with blood and he could no longer sit down. He has been dealing with this for approximately 8 weeks. He was concerned that he had a f issure per his primary medical doctor's concern. As such, he came to the office, at which point, I r ecommended he go to the ER for proper imaging. We attempted to get him authorized for imaging as an outpatient. However, his insurance company was unable to be reached. Fortunately, he was willing to go to the emergency room as he had significant worsening of symptoms and as such, he went to the [facility] room with the above-stated complaints. Past Medical History: Significant for diabetes, morbid obesity. Family History: History for diabetes. Social History: He denies smoking, alcohol, recreational drug use. Review of Systems: Ten-point review of systems other than HPI, denies. Physical Examination: General: At the time of my examination, he is awake, alert, oriented. Psychiatric: Appropriate, conversive. General: He is morbidly obese, awake, approximately 400 pounds. HEENT: Normocephalic. Sclerae anicteric. Mucous membranes are moist. Oropharynx is clear. Neck: Supple. No JVD. Chest: Normal expansion and excursion. Heart: Regular rate and rhythm. Pulmonary: Clear to auscultation bilaterally. Abdomen: Soft, nontender, nondistended. No rebound. No guarding. No focal peritonitis. Rectal: Focused examination of the rectal area shows a perineal area of drainage of pus and purulent type material along with some minimal blood. Rectal exam could not be fully performed either in my clinic or in the emergency room due to significant pain and inability to tolerate rectal examination. SKIN: Otherwise warm and dry. Laboratory Data: He had a laboratory exam, which revealed a white blood cell count of 6.2, hemoglobi n 13.3, hematocrit 39.7, platelet count is 186. His sodium 140, potassium 3.7, chloride 110, carbon dioxide is 26, BUN 8, creatinine 0.8, glucose is 95, magnesium was 2.2, his phosphorous was 3.4. CT scan is currently pending. He had an ultrasound performed, which was officially read on 07/12 as sub cutaneous collection likely reflecting subcentimeter abscess in perineum, perianal, perirectal fistul a cannot be excluded on the basis of this study. Assessment And Plan: This is a 51-year-old male who comes in with perineal abscess, possible perirec elena abscess. 1.IV fluid hydration. 2.Antibiotic coverage. 3.Await CT scan. 4.I have explained risks, benefits, alternatives of exam under anesthesia, drainage of perianal, per irectal abscess, including but not limited to bleeding, infection, damage to surrounding tissues, tro uble with sphincter function, nerve issues, and ongoing need for surgery. Patient agrees to proceed as indicated. CHINYERE/CISCO Voice ID: [id number] Report ID: [id number]
[2022-07-14] MEDS: FENTANYL CITR 100 MCG/2 ML IV PRN (03:31)
--- NOTE | 2022-07-14 03:40 | OP ---
Date of Procedure: 07/13/2022 Surgeon: Beau Crawford MD, Preoperative Diagnosis: Perianal pain. Postoperative Diagnosis: Perianal pain. Procedures Performed: 1.Exam under anesthesia. 2.Placement of a cutting seton. Anesthesia: General endotracheal plus local with 0.25% Marcaine. Estimated Blood Loss: 10 cc. Specimen: None. Findings: Perianal fistula at the 6 o'clock position while the patient was in the lithotomy position . Complications: None. Implants: 1.Seton red vessel loop. 2.Gel-Foam placed and packed in the perianal area. Disposition: The patient transferred to recovery room in good condition. Procedure In Detail: After informed consent was obtained, patient was brought to the operating room, prepped and draped in the usual sterile fashion. After adequate anesthesia was achieved, a proctosc ope was inserted into the anus after appropriate lubricating and digital rectal examination at which an area of thickening was found at 6 o'clock position. I visualized this area with a proctoscope and found to be consistent with a bleeding possible fistula with abscess material emanating from the kaley tral portion of the anterior rectal space. At this point, I removed the proctoscope and placed a seq uentially larger anoscope into the anal canal. I then digitized an area of the perianal skin and fou nd there to be an opening at the 6 o'clock position in the midline consistent with a direct perianal fistula. I then probed this with a probe and easily found a tract into the perianal canal. At this point, I placed a red rubber vessel loop through the probe and advanced through the fistula and secur ed using a 0 silk suture. The area was copiously irrigated until completely clear. There was stool burden in the general vicinity. However, I irrigated as much as possible and checked at the area. N o additional abscesses were palpated circumferentially around the perineal and perianal areas. I the n placed a piece of soaked Gelfoam into the anal canal to assist with additional hemostasis. No hemo stat is required. Additionally, significant hemorrhoid burn was noted throughout all 3 pillars, but they did not have evidence of active bleeding or sequelae of thrombosis at this time and as such, I o pted to leave them in the anatomic position, which appeared to be level grade 2 internal hemorrhoids at this point. The sterile dressing was then placed over top. The patient tolerated the procedure w ell without evidence of complication and transferred to PACU in good condition. All counts were rubi ect at the end of the case. CHINYERE/CISCO Voice ID: [id number] Report ID: [id number]
[2022-07-14] MEDS: PIPER TAZO 3.375 GM in NA CHLORIDE 0.9% 100 ML IV SCH ×2 (06:19→07:36)
[2022-07-14] MEDS: INSULIN -REGULAR HUMAN 50 UNIT/0.5 ML ML SQ SCH (07:30)
[2022-07-14] MEDS: HYDROCODONE/APAP 7.5/325 MG TAB PO PRN (07:35)
[2022-07-14] MEDS: PIOGLITAZONE 15 MG TAB PO SCH (07:35)
[2022-07-14] MEDS: FAMOTIDINE 20 MG TAB PO SCH (07:35)
[2022-07-14] MEDS: HOME MED 1 EA UNK (Rosuvastatin Calcium [Rosuvastatin Calcium] 5 MG Tablet) PO SCH (07:36)
[2022-07-14] MEDS: FLECAINIDE 100 MG TAB PO SCH (07:36)
[2022-07-14] MEDS: allopurinoL 300 MG TAB PO SCH (07:36)
[2022-07-14 08:00] VITALS: BP 124/67; TEMP 96.9
--- NOTE | 2022-07-14 09:01 | P.DS ---
Admission Date: 07/12/22 Discharge Date: 07/14/22 Reason for Admission: Drainage from anal area - Problems (1) Perirectal abscess Current Visit: Yes Status: Acute (2) Diabetes mellitus type 2 in obese Current Visit: Yes Status: Acute (3) Morbid obesity Current Visit: Yes Status: Acute Brief History of Present Illness: 51-year-old morbidly obese gentleman with a history of diabetes mellitus type II presented emergency department with a complaint of purulent drainage and bleeding from the anal. Patient was referred to Dr. Crawford by his PCP, he saw Dr. Crawford in his office today who examined him and noted an opening in the perirectal area draining bloodstained pus. Dr. Crawford referred the patient to the emergency department for imaging. Patient weight could not fit the CT scan. Ultrasound was done which shows small perirectal abscess. Dr. Crawford re commended hospitalization for examination under anesthesia tomorrow. Patient is admitted for further management. Vital Signs/Physical Exam: Temp Pulse Resp BP Pulse Ox 96.9 F 58 18 124/67 98 07/14/22 08:00 07/14/22 08:00 07/14/22 08:00 07/14/22 08:00 07/14/22 08:00 Laboratory Data at Discharge: WBC 6.20 K/uL (4.3-10.9) 07/13/22 04:05 Hgb 13.3 g/dL (13.6-17.9) L D 07/13/22 04:05 Hct 39.7 % (39.6-49.0) 07/13/22 04:05 Plt Count 186 K/uL (152-406) 07/13/22 04:05 PT 12.6 SECONDS (9.5-12.5) H 07/12/22 20:34 INR 1.15 07/12/22 20:34 Sodium 140 mmol/L (136-145) 07/13/22 04:05 Potassium 3.7 mmol/L (3.5-5.1) 07/13/22 07:46 BUN 8 mg/dL (7-18) 07/13/22 04:05 Creatinine 0.86 mg/dL (0.55-1.3) 07/13/22 04:05 Glucose 95 mg/dL (74-106) 07/13/22 04:05 Phosphorus 3.4 mg/dL (2.5-4.9) 07/13/22 04:05 Magnesium 2.2 mg/dL (1.8-2.4) 07/13/22 04:05 Total Bilirubin 0.5 mg/dL (0.2-1.0) 07/12/22 14:21 AST 17 U/L (15-37) 07/12/22 14:21 ALT 31 U/L (12-78) 07/12/22 14:21 Alkaline Phosphatase 65 U/L (45-117) 07/12/22 14:21 Home Medications: Allopurinol 300 mg PO DAILY 07/12/22 Aspirin [Vazalore] 81 mg PO DAILY 07/12/22 Famotidine 20 mg PO BID 07/12/22 Flecainide [Tambocor*] 100 mg PO BID 07/12/22 Metformin HCl 500 mg PO BID 07/12/22 Pioglitazone HCl [Actos] 15 mg PO DAILY 07/12/22 Potassium Citrate [Potassium Citrate ER] 07/12/22 Rosuvastatin Calcium 5 mg PO DAILY 07/12/22 Semaglutide [Ozempic] 1 mg SQ EVERY 7TH DAY 07/12/22 Sildenafil Citrate 100 mg PO PRN 07/12/22 Ciprofloxacin HCl [Cipro] 500 mg PO BID #20 tab 07/14/22 Hydrocodone 7.5/APAP 325 [[place] 7.5/325 mg*] 1 tab PO Q6H PRN #20 tab 07/14/22 metroNIDAZOLE [Flagyl] 500 mg PO Q8H #30 tab 07/14/22 New Medications: Ciprofloxacin HCl [Cipro] 500 mg PO BID #20 tab metroNIDAZOLE [Flagyl] 500 mg PO Q8H #30 tab Hydrocodone 7.5/APAP 325 [[place] 7.5/325 mg*] 1 tab PO Q6H PRN #20 tab PRN Reason: Pain Scale 5-7 (Moderate) Activity: Ad kayla Followup: Beau Crawford MD [ACTIVE - CAN ADMIT] - 1-2 Weeks Unknown,U [Primary Care Provider] -
--- NOTE | 2022-07-14 10:39 | P.DS ---
Admission Date: 07/12/22 Discharge Date: 07/14/22 Reason for Admission: Drainage from anal area - Problems (1) Rectal fistula Current Visit: Yes Status: Acute (2) Diabetes mellitus type 2 in obese Current Visit: Yes Status: Acute (3) Morbid obesity Current Visit: Yes Status: Acute Brief History of Present Illness: 51-year-old morbidly obese gentleman with a history of diabetes mellitus type II presented emergency department with a complaint of purulent drainage and bleeding from the anal. Patient was referred to Dr. Crawford by his PCP, he saw Dr. Crawford in his office today who examined him and noted an opening in the perirectal area draining bloodstained pus. Dr. Crawford referred the patient to the emergency department for imaging. Patient weight could not fit the CT scan. Ultrasound was done which shows small perirectal abscess. Dr. Crawford recomm ended hospitalization for examination under anesthesia tomorrow. Patient hospitalized for further management. Hospital Course: Patient admitted to the medical floor and treated with IV Zosyn. Pelvic CT with IV contrast was done which showed no evidence of perirectal or perianal abscess. Patient seen by general surgery Dr. Crawford who performed examination under anesthesia and noted a fistula and placed a seton. Patient deemed stable for discharge per Dr. Crawford. He is prescribed empiric ciprofloxacin and Flagyl. He is informed to follow-up with Dr. Crawford as outpatient. Vital Signs/Physical Exam: Temp Pulse Resp BP Pulse Ox 96.9 F 58 18 124/67 95 07/14/22 08:00 07/14/22 08:00 07/14/22 08:35 07/14/22 08:00 07/14/22 08:35 General: Alert, In no apparent distress, Oriented x3, Obese HEENT: Mucous membr. moist/pink Respiratory: Clear to auscultation bilaterally, Normal air movement Cardiovascular: Regular rate/rhythm, Normal S1 S2 Gastrointestinal: Soft and benign Musculoskeletal: No erythema, No tenderness Integumentary: No rashes Neurological: Normal strength at 5/5 x4 extr Laboratory Data at Discharge: WBC 6.20 K/uL (4.3-10.9) 07/13/22 04:05 Hgb 13.3 g/dL (13.6-17.9) L D 07/13/22 04:05 Hct 39.7 % (39.6-49.0) 07/13/22 04:05 Plt Count 186 K/uL (152-406) 07/13/22 04:05 PT 12.6 SECONDS (9.5-12.5) H 07/12/22 20:34 INR 1.15 07/12/22 20:34 Sodium 140 mmol/L (136-145) 07/13/22 04:05 Potassium 3.7 mmol/L (3.5-5.1) 07/13/22 07:46 BUN 8 mg/dL (7-18) 07/13/22 04:05 Creatinine 0.86 mg/dL (0.55-1.3) 07/13/22 04:05 Glucose 95 mg/dL (74-106) 07/13/22 04:05 Phosphorus 3.4 mg/dL (2.5-4.9) 07/13/22 04:05 Magnesium 2.2 mg/dL (1.8-2.4) 07/13/22 04:05 Total Bilirubin 0.5 mg/dL (0.2-1.0) 07/12/22 14:21 AST 17 U/L (15-37) 07/12/22 14:21 ALT 31 U/L (12-78) 07/12/22 14:21 Alkaline Phosphatase 65 U/L (45-117) 07/12/22 14:21 Home Medications: Allopurinol 300 mg PO DAILY 07/12/22 Aspirin [Vazalore] 81 mg PO DAILY 07/12/22 Famotidine 20 mg PO BID 07/12/22 Flecainide [Tambocor*] 100 mg PO BID 07/12/22 Metformin HCl 500 mg PO BID 07/12/22 Pioglitazone HCl [Actos] 15 mg PO DAILY 07/12/22 Potassium Citrate [Potassium Citrate ER] 07/12/22 Rosuvastatin Calcium 5 mg PO DAILY 07/12/22 Semaglutide [Ozempic] 1 mg SQ EVERY 7TH DAY 07/12/22 Sildenafil Citrate 100 mg PO PRN 07/12/22 Ciprofloxacin HCl [Cipro] 500 mg PO BID #20 tab 07/14/22 Hydrocodone 7.5/APAP 325 [[place] 7.5/325 mg*] 1 tab PO Q6H PRN #20 tab 07/14/22 metroNIDAZOLE [Flagyl] 500 mg PO Q8H #30 tab 07/14/22 New Medications: Ciprofloxacin HCl [Cipro] 500 mg PO BID #20 tab metroNIDAZOLE [Flagyl] 500 mg PO Q8H #30 tab Hydrocodone 7.5/APAP 325 [[place] 7.5/325 mg*] 1 tab PO Q6H PRN #20 tab PRN Reason: Pain Scale 5-7 (Moderate) Activity: Ad kayla Followup: Beau Crawford MD [ACTIVE - CAN ADMIT] - 1-2 Weeks Unknown,U [Primary Care Provider] -
== END 2022-07-14 10:52 | disposition home or self-care (01) ==
LOC: ER 12:55 → ERHOLD 17:39 → 4TH 07-13 16:13
PROVIDERS: ADMIT Internal Medicine; ATTEND Internal Medicine
PROC: 0WH Anatomical Regions, General, Insertion (ICD-10-PCS; principal; 2022-07-13 14:30)
DX: K60.4 Rectal fistula (principal); E11.9 Type 2 diabetes mellitus without complications; E66.01 Morbid (severe) obesity due to excess calories; Z68.43 Body mass index [BMI] 50.0-59.9, adult; Z88.6 Allergy status to analgesic agent; Z20.822 Contact with and (suspected) exposure to COVID-19
CPT/HCPCS: 96365; 96361; 85025 ×2; 80048; 36415; 83735; 84100; 84132; 85610; 82947 ×6; 80053; 72193; 76882; 96375; 99283; 87811; 46020; Q9967; J2704 ×2; J1100; J2543 ×7; J2001; J2250; J3010 ×8; J1170 ×3; G0378 ×4; J7040; J7030 ×6; J2405 ×4; Q9968

== ENCOUNTER 2022-09-20 08:01 | Day surgery (SDC) | payer BC ==
[2022-09-20 08:44] LABS: Potassium 3.9 mmol/L (3.5-5.1)
[2022-09-20] MEDS ORDERED: NA CHLORIDE 0.9% 1,000 ML ONE (08:46)
[2022-09-20] MEDS ORDERED: propofoL 200 MG/20 ML VIAL IV ONE ×2 (09:09→11:29)
[2022-09-20] MEDS ORDERED: ROCURONIUM 50 MG/5 ML VIAL IV ONE (09:10)
[2022-09-20] MEDS ORDERED: LIDOCAINE 2% MPF 5 ML VIAL ONE (09:10)
[2022-09-20] MEDS ORDERED: FENTANYL CITR 100 MCG/2 ML ONE (09:10)
[2022-09-20] MEDS ORDERED: SUCCINYLCHOLINE 20 MG/ML (10 ML) IV ONE (10:06)
[2022-09-20] MEDS: CEFAZOLIN SODIUM 2 GM/VIAL ONE ×2 (11:12→11:20)
[2022-09-20] MEDS ORDERED: NS 0.9% VIAL 10 ML ONE ×2 (11:20→11:40)
[2022-09-20] MEDS ORDERED: ONDANSETRON 4 MG/2 ML VIAL ONE (11:35)
[2022-09-20] MEDS ORDERED: KETOROLAC 30 MG/ML INJ ONE (11:37)
[2022-09-20] MEDS ORDERED: SUGAMMADEX SODIUM 200 MG/2 ML VIAL IV ONE (11:40)
--- NOTE | 2022-09-20 11:59 | P.OP ---
Preoperative diagnosis: Persistent Perianal Fistula - posterior Postoperative diagnosis: Persistent Perianal Fistula - posterior Primary procedure: Exam under anesthesia Secondary procedure: Placement of Porcine Fistula plug Anesthesia: GETA + Local Estimated blood loss: <5cc Specimen: none Findings: posterior perianal fistula Complications: None Implants: Cook 5 Porcine Fistula plug Transferred to: Recovery Room Condition: Good
[2022-09-20] MEDS: HYDROMORPHONE HCL 1 MG/ML INJ ONE ×4 (12:27→12:42)
--- NOTE | 2022-09-20 12:34 | OP ---
Date of Procedure: 09/20/2022 Surgeon: Beau Crawford MD, Preoperative Diagnosis: Persistent perianal fistula in the posterior position. Postoperative Diagnosis: Persistent perianal fistula in the posterior position. Procedure Performed: 1.Exam under anesthesia. 2.Placement of Porcine fistula plug. Anesthesia: General endotracheal plus local with 0.25% Marcaine. Estimated Blood Loss: Less than 5 cc. Specimen: None. Findings: Posterior perianal fistula. Complications: None. Implants: Cook #5 Porcine fistula plug. Disposition: The patient was transferred to the recovery room in good condition. Procedure In Detail: After informed consent was obtained, the patient was brought to the operating r oom, prepped and draped in the usual sterile fashion after adequate anesthesia was achieved. I perfo rmed exam under anesthesia. The patient remained in lithotomy position throughout the procedure. At this point, I did sequential dilation of anoscopy to ultimately examine a posterior fistula, which w as at the 6 o'clock position. The seton remained in place at this point. I then cannulated the trac t with a catheter and flushed it with hydrogen peroxide, 10 cc were utilized. At this point, I passe d the brush through and scrubbed the fistula tract removing the seton at this time and left this scru bbing plugged passer in place at this point securing the 5 Cook Porcine plug on the anterior aspect. I then passed it through leaving the button on the internal aspect of the rectal wall. I secured th e anal fistula plug to the tissue using PDS sutures in a circumferential fashion. Four sutures were used and good apposition of the plug to the tissue was appreciated at this point. I digitized and fo und to be in good apposition with good hemostasis as well. I injected the area with additional local . I then trimmed the fistula plug and secured an additional 0 Vicryl suture through the distal aspec t of the plug securing it to the perianal skin to help secure this during the immediate postop. The patient tolerated the procedure well without evidence of complication. I then placed a Gelfoam into the perianal canal. The patient tolerated the procedure well without evidence of complication and tr ansferred to PACU in good condition. All counts were correct at the end of the case. TK/MODL Voice ID: [id number] Report ID: [id number]
[2022-09-20] MEDS ORDERED: MIDAZOLAM HCL 2 MG/2 ML INJ ONE (12:56)
[2022-09-20] MEDS ORDERED: PROMETHAZINE INJ 25 MG/ML AMP ONE (13:42)
[2022-09-20] MEDS ORDERED: HYDROCODONE/APAP 10/325 TAB ONE (15:07)
[2022-09-20 16:52] VITALS: TEMP 97.1
[2022-09-20 16:56] VITALS: BP 114/65; O2SAT 100
--- NOTE | 2022-09-20 18:10 | EKG ---
Test Date: 2022-09-20 Test Time: 08:18:10 [employer] Director: DUNG MEASUREMENT RESULTS: Intervals: Rate: 55 MA: 180 QRSD: 100 QT: 466 QTc: 445 [place]: P: 11 MA: 180 QRS: -20 T: -8 INTERPRETIVE STATEMENTS: Sinus bradycardia Moderate voltage criteria for LVH, may be normal variant Borderline ECG No previous ECG available for comparison Electronically Signed On 09-20-22 18:10:18 [employer] by Chin Miranda
== END 2022-09-20 15:17 | disposition home or self-care (01) ==
LOC: OT 08:01 → OR 15:17
PROVIDERS: ATTEND Surgery
PROC: 0HB9XZZ Excision of Perineum Skin, External Approach (ICD-10-PCS; principal; 2022-09-20 10:15)
DX: K60.3 Anal fistula (principal)
CPT/HCPCS: 93005; 80048; 36415; 82947 ×2; 46707; J2704 ×2; J2550; J0330; J2001; J2250; J3010; A4216 ×2; J1170 ×2; J7030; J2405